=== PATIENT | male | born 1980 | race Caucasian/White ===

== ENCOUNTER 2016-11-12 00:10 | Emergency (ER) | payer OTHER ==
[2016-11-12 00:26] VITALS: RESP 20; TEMP 98
[2016-11-12] MEDS ORDERED: NITROGLYCERIN 0.4 MG TAB SL PRN (00:26)
[2016-11-12] MEDS ORDERED: SODIUM CHLORIDE 0.9% FLUSH 10 ML SOL IV PRN (00:26)
[2016-11-12] MEDS ORDERED: ASPIRIN 81 MG CHEWABLE CTB PO STA (00:26)
[2016-11-12] MEDS ORDERED: NITROGLYCERIN 0.4 MG TAB SL ONE (00:28)
[2016-11-12] MEDS ORDERED: ASPIRIN 81 MG CHEWABLE CTB ONE (00:29)
[2016-11-12 00:55] LABS: BASOPHILS % (AUTO) 1 % (0-3); EOSINOPHILS % (AUTO) 3 % (0-9); HEMATOCRIT 40 % (39-53); MEAN CORPUSCULAR HGB CONC 35.8 gm/dl (32.0-36.0); MEAN CORPUSCULAR VOLUME 84 fL (80-100); MONOCYTES % (AUTO) 10.6 % (0-12)
[2016-11-12 01:12] LABS: CALCIUM 8.7 mg/dl (8.5-10.1); GLOM FILT RATE 71 mL/min (>60); POTASSIUM 3.7 mMol/L (3.5-5.1); SODIUM 137 mMol/L (136-145)
[2016-11-12 01:29] VITALS: BP 130/85; PULSE 68; O2SAT 98
== END 2016-11-12 01:25 | disposition home or self-care (01) ==
LOC: ED 00:10
DX: R07.89 Other chest pain (principal)
CPT/HCPCS: 36415; 71010; 80048; 82550; 84484; 85025; 85610; 85730; 93005; 99284